=== PATIENT | female | born 1980 | race Two or more races ===

== ENCOUNTER 2019-11-08 14:00 | Inpatient (IN) | payer OTHER ==
[~2019-11-08] VITALS: Ht 162.6 cm; Wt 3.6 kg
[2019-11-20] MEDS ORDERED: PRENATAL TABLE1 EACH PO (06:52)
[2019-11-20] MEDS ORDERED: CHILDREN'S ASPI81 MG (06:52)
[2019-11-24] MEDS ORDERED: PRENATAL + DHA1 EAC1 PO (08:14)
== END 2019-11-24 15:11 | disposition home or self-care (01) | DRG 788 ==
LOC: OB/GYN 11-19 14:00 → LDR 11-20 05:17 → O/R 11-21 16:44 → SURG-SUITE 11-21 18:52
PROVIDERS: ADMIT Obstetrics & Gynecology; ATTEND Obstetrics & Gynecology
PROC: 3E0P7VZ Introduction of Hormone into Female Reproductive, Via Natural or Artificial Opening (ICD-10-PCS; 2019-11-20)
PROC: 3E033VJ Introduction of Other Hormone into Peripheral Vein, Percutaneous Approach (ICD-10-PCS; 2019-11-20)
PROC: 4A1HXCZ Monitoring of Products of Conception, Cardiac Rate, External Approach (ICD-10-PCS; 2019-11-20)
PROC: 10D00Z1 Extraction of Products of Conception, Low, Open Approach (ICD-10-PCS; principal; 2019-11-21 16:00)
DX: O61.0 Failed medical induction of labor (principal); O99.824 Streptococcus B carrier state complicating childbirth; Z3A.40 40 weeks gestation of pregnancy; Z37.0 Single live birth

== ENCOUNTER 2022-06-10 09:15 | Inpatient (IN) | payer OTHER ==
[~2022-06-10] VITALS: Ht 162.6 cm; Wt 99.8 kg
[~2022-06-10 09:15] MED LIST: CHILDREN'S ASPI81 MG; PRENATAL + DHA1 EAC1 PO; PRENATAL TABLE1 EACH PO
[2022-06-12] MEDS ORDERED: PHENTERMINE H37.5 M1 (10:42)
[2022-06-12] MEDS ORDERED: INDAPAMIDE2.5 MG (10:42)
== END 2022-06-13 13:29 | disposition home or self-care (01) | DRG 349 ==
LOC: SURH 06-12 09:15 → O/R 06-12 09:50 → SURH 06-12 12:45
PROVIDERS: ADMIT Colon & Rectal Surgery; ATTEND Colon & Rectal Surgery
PROC: 0DJD8ZZ Inspection of Lower Intestinal Tract, Via Natural or Artificial Opening Endoscopic (ICD-10-PCS; 2022-06-12)
PROC: 3E0T3BZ Introduction of Anesthetic Agent into Peripheral Nerves and Plexi, Percutaneous Approach (ICD-10-PCS; 2022-06-12)
PROC: 0DBP7ZZ Excision of Rectum, Via Natural or Artificial Opening (ICD-10-PCS; principal; 2022-06-12 12:45)
DX: K62.1 Rectal polyp (principal); Z20.822 Contact with and (suspected) exposure to COVID-19
CPT/HCPCS: 0184T; 64430; 45300